=== PATIENT | male | born 1990 | race American Indian/Alaskan Native ===

== ENCOUNTER 2019-02-26 13:41 | Emergency (ER) | payer SELFPAY ==
[2019-02-26 13:51] VITALS: BP 108/81
--- NOTE | 2019-02-26 14:51 | XRay Report ---
XR hand 3+V LT INDICATION / CLINICAL INFORMATION: Left hand pain after fall. COMPARISON: None available. FINDINGS: BONES/JOINT(S): No acute fracture or subluxation. No significant degenerative changes. SOFT TISSUES: No significant abnormality. ADDITIONAL FINDINGS: None. Signer Name: Akash Wright MD Signed: 02/26/2019 2:46 PM Workstation Name: [id number]
--- NOTE | 2019-02-26 19:10 | Emergency Department Report ---
ED Extremity Problem HPI - General Chief complaint: Extremity Injury, Upper Stated complaint: FELL DOWNSTAIRS INJURED ARM Time Seen by Provider: 02/26/19 18:36 Source: patient Mode of arrival: Ambulatory Limitations: No Limitations - History of Present Illness Initial comments: 28-year-old -[place] male tripped and fell down a few steps causing an injury to his left hand a couple days ago. Pain is dull and throbbing which with palpation and range of motion prominent to the palmaris aspect. Reports no numbness or tingling. He reports no broken skin. -: Sudden Location: left History of Same: No -: Yes myalgia, Yes arthralgia Radiation: none Consistency: constant Improves with: nothing Worsens with: palpation - Related Data Previous Rx's Medication Instructions Recorded Last Taken Type Ketorolac [Toradol] 10 mg PO Q6H PRN #10 tablet 02/26/19 Unknown Rx Allergies Allergy/AdvReac Type Severity Reaction Status Date / Time No Known Allergies Allergy Unverified 02/26/19 13:44 ED Review of Systems ROS: Stated complaint: FELL DOWNSTAIRS INJURED ARM Other details as noted in HPI Comment: All other systems reviewed and negative ED Past Medical Hx - Past Medical History Previous Medical History?: Yes Hx Asthma: Yes (Pediatric asthma) Hx HIV: Yes - Surgical History Past Surgical History?: No - Social History Smoking Status: Current Every Day Smoker Substance Use Type: Alcohol, Marijuana - Medications Home Medications: Home Medications Medication Instructions Recorded Confirmed Last Taken Type Ketorolac [Toradol] 10 mg PO Q6H PRN #10 tablet 02/26/19 Unknown Rx ED Physical Exam - General Limitations: No Limitations General appearance: alert, in no apparent distress, appears intoxicated - Head Head exam: Present: atraumatic, normocephalic - Eye Eye exam: Present: normal appearance, PERRL, EOMI Pupils: Present: normal accommodation - ENT ENT exam: Present: normal exam, normal orophraynx, mucous membranes moist, TM's normal bilaterally - Neck Neck exam: Present: normal inspection, full ROM. Absent: lymphadenopathy - Respiratory Respiratory exam: Present: normal lung sounds bilaterally. Absent: respiratory distress, rales, rhonchi, accessory muscle use, decreased breath sounds, prol onged expiratory - Cardiovascular Cardiovascular Exam: Present: regular rate, normal rhythm. Absent: systolic murmur, diastolic murmur, rubs, gallop - GI/Abdominal GI/Abdominal exam: Present: soft, normal bowel sounds - Rectal Rectal exam: Present: deferred - Extremities Exam Extremities exam: Present: normal inspection, tenderness - Expanded Upper Extremity Exam Left Hand Wrist exam: Present: tenderness, swelling, ecchymosis Hand L/R Front: 1 - Positive: other (ecchymosis to this region and tenderness to this region.) Hand L/R Back: 1 - Some swelling of a painful cystic mass to this region possibly a traumatic ganglion cyst Vascular: Present: normal capillary refill. Absent: vascular compromise - Back Exam Back exam: Present: normal inspection - Neurological Exam Neurological exam: Present: alert, oriented X3 - Psychiatric Psychiatric exam: Present: normal affect, normal mood - Skin Skin exam: Present: warm, dry, intact, normal color. Absent: rash ED Course Vital Signs 02/26/19 13:47 Temperature 97.7 F Pulse Rate 72 Respiratory 18 Rate Blood Pressure 108/81 O2 Sat by Pulse 100 Oximetry ED Medical Decision Making - Radiology Data Radiology results: [place] [address] XRay Report Signed Patient: JORDAN KAUR MR#: [id number] : 1990 Acct:[id number] Age/Sex: 28 / M ADM Date: 02/26/19 Loc: ED Attending Dr: Ordering Physician: MAK KHAN Date of Service: 02/26/19 Procedure(s): XR hand 3+V LT Accession Number(s): [id number] cc: MAK KHAN Fluoro Time In Minutes: XR hand 3+V LT INDICATION / CLINICAL INFORMATION: Left hand pain after fall. COMPARISON: None available. FINDINGS: BONES/JOINT(S): No acute fracture or subluxation. No significant degenerative changes. SOFT TISSUES: No significant abnormality. ADDITIONAL FINDINGS: None. Signer Name: Akash Wright MD Signed: 02/26/2019 2:46 PM Workstation Name: [id number] Transcribed By: NUBIA Dictated By: Akash Wright MD Electronically Authenticated By: Akash Wright MD Signed Date/Time: 02/26/191445 DD/ 45 TD/TT: - Medical Decision Making 28-year-old male status post trip and fall down stairs resulting in hand pain. His chest x-ray shows no fractures joint is stable neurovascularly intact. He was given ice was significantly helped his pain. Placed in a splint for comfort and will be placed on nonsteroidals to help his his pain. No broken skin is present no signs of any infectious process. - Differential Diagnosis traumatic ganglion cyst, hand contusion, muscle strain, subclinical fractur Critical care attestation.: If time is entered above; I have spent that time in minutes in the direct care of this critically ill patient, excluding procedure time. ED Disposition Clinical Impression: Hand contusion Disposition: DC-01 TO HOME OR SELFCARE Is pt being admited?: No Does the pt Need Aspirin: No Condition: Stable Instructions: Contusion in Adults (ED), Ice Pack Application (ED) Additional Instructions: Please take medications as needed for discomfort U med Tylenol 3 medication reg imen as well please please ice your hand up per the recommendations. He is got the splint for comfort purposes only as as discussed return to emergency department should you express any numbness to the hand or worsening pain. He feels that her condition is worsening also return to the to the emergency department. If you unsure of what to do please call Prescriptions: Ketorolac [Toradol] 10 mg PO Q6H PRN #10 tablet PRN Reason: Pain Referrals: [facility] [Provider Group] - 3-5 Days
== END 2019-02-26 20:21 | disposition home or self-care (01) ==
LOC: ED 13:41
DX: S60.222A Contusion of left hand, initial encounter (principal); J45.909 Unspecified asthma, uncomplicated; F17.200 Nicotine dependence, unspecified, uncomplicated; F12.10 Cannabis abuse, uncomplicated; Z79.899 Other long term (current) drug therapy; Z21 Asymptomatic human immunodeficiency virus [HIV] infection status; W10.8XXA Fall (on) (from) other stairs and steps, initial encounter; Y93.89 Activity, other specified; Y92.89 Other specified places as the place of occurrence of the external cause; Y99.8 Other external cause status